=== PATIENT | male | born 1990 | race Two or more races ===

== ENCOUNTER 2021-01-09 09:03 | Emergency (ER) | payer MEDICAID ==
[~2021-01-09] VITALS: Ht 185.4 cm; Wt 106.1 kg
--- NOTE | 2021-01-09 09:55 | NUR ---
called in waiting room, no answer.
--- NOTE | 2021-01-09 10:38 | NUR ---
" I FEEL LIKE HURTING MYSELF & SOMEONE, I WANT TO RUN INTO TRAFFIC ". " I WANT TO GO TO [facility] TO BE ADMITTED " PT AAOX4, VSS. RR EVEN & UNLABORED. DENIES CP, SOB, DIZZINESS, N/V AT THIS TIME. PT CALM & COOPERATIVE, NAD NOTED AT THIS TIME. AWAITING EVAL BY BUBBA. SITTER AT BS & WILL CONT TO MONITOR.
[2021-01-09 11:28] LABS: BASOPHILS # (AUTO) 0.1 K/uL (0.0-0.2); BASOPHILS % (AUTO) 0.8 % (0.0-2.0); EOSINOPHILS % (AUTO) 3.9 % (0.0-6.0); HEMATOCRIT 42 % (39-51); HEMOGLOBIN 14.6 g/dL (13.5-17.5); LYMPHOCYTES # (AUTO) 1.8 K/uL (0.8-4.8); LYMPHOCYTES % (AUTO) 23.8 % (20.0-44.0); MEAN CORPUSCULAR HGB CONC 35 g/dl (31.0-36.0); MEAN CORPUSCULAR VOLUME 96 fL (80-96); MONOCYTES # (AUTO) 0.6 K/uL (0.1-1.30); MONOCYTES % (AUTO) 7.8 % (2.0-12.0); NEUTROPHILS # (AUTO) 4.7 K/uL (1.8-8.9); NEUTROPHILS % (AUTO) 63.7 % (43.0-81.0); PLATELET COUNT (AUTO) 283 K/uL (150-450); RED BLOOD CELL COUNT(AUTO) 4.41 MIL/uL (4.5-6.0); WHITE BLOOD COUNT (AUTO) 7.4 K/uL (4.3-11.0)
[2021-01-09 11:36] LABS: CALCIUM, SERUM 8.5 mg/dL (8.5-10.1); CARBON DIOXIDE 29 mmol/L (21-32); CHLORIDE 104 mmol/L (98-107); CREATININE 0.8 mg/dL (0.6-1.3); GLUCOSE 128 mg/dL (74-106); POTASSIUM 4.2 mmol/L (3.5-5.1); SODIUM SERUM 142 mmol/L (136-145); UREA NITROGEN, BLOOD 14 mg/dL (7-18)
[2021-01-09 11:37] LABS: BILIRUBIN,URINE Negative (NEGATIVE); COLOR,URINE YELLOW (YELLOW); LEUKOCYTE ESTERASE ,URINE Negative (NEGATIVE); NITRITE, URINE Negative (NEGATIVE); PH,URINE 6.5 (5.0-8.0); PROTEIN,URINE Negative (NEGATIVE); UGLUCOSE Negative (NEGATIVE); UROBILINOGEN,URINE 0.2 EU/dL (0.2)
[2021-01-09 11:54] LABS: ALANINE AMINOTRANSFERASE 26 U/L (12-78); ALBUMIN 3.5 g/dL (3.4-5.0); ALCOHOL, BLOOD < 3 mg/dL (0-0); ALKALINE PHOSPHATASE 62 U/L (46-116); ASPARTATE AMINOTRANSFERASE 16 U/L (15-37); BILIRUBIN,TOTAL 0.1 mg/dL (0.2-1.0); TOTAL PROTEIN, SERUM 6.7 g/dL (6.4-8.2)
[2021-01-09 11:57] LABS: ACETAMINOPHEN 0 ug/ml (10-30)
--- NOTE | 2021-01-09 12:23 | NUR ---
COVID SWAB DONE AND SENT TO LAB
--- NOTE | 2021-01-09 14:04 | NUR ---
CALLED LAB TO FOLLOW UP ON COVID SWAB STILL "WORKING ON IT".
--- NOTE | 2021-01-09 15:08 | NUR ---
CLINICALS FAXED TO [facility].
--- NOTE | 2021-01-09 18:04 | NUR ---
THE PATIENT IS ACCPTED TO [facility] UNDER DR HAMPTON
[2021-01-09 18:10] VITALS: BP 131/78
--- NOTE | 2021-01-09 18:10 | NUR ---
REPORT GIVEN TO NURSE DANIELLE
--- NOTE | 2021-01-09 18:12 | NUR ---
CALLED [facility] FOR TRANSPORT TO [facility]. ETA 45 MINUTES.
--- NOTE | 2021-01-09 18:34 | NUR ---
PATIENT A/OX4, BREATHING EVEN AND UNLABORED, AMBULATORY WITH STEADY GAIT. NO DISTRESS NOTED. PATIENT TRANSFERRED TO [facility] IN STABLE CONDITION.
== END 2021-01-09 18:35 ==
LOC: ER 09:06
DX: R45.851 Suicidal ideations (principal); F31.9 Bipolar disorder, unspecified; Z59.0 Homelessness; Z20.822 Contact with and (suspected) exposure to COVID-19
CPT/HCPCS: 36415; 80048; 80076; 80143; 80307; 80320; 81003; 85025; 87426; 99285; C9803; G0480

== ENCOUNTER 2021-01-22 13:06 | Emergency (ER) | payer MEDICAID ==
[~2021-01-22] VITALS: Ht 185.4 cm; Wt 113.4 kg
[2021-01-22 13:10] VITALS: BP 131/75
--- NOTE | 2021-01-22 13:10 | NUR ---
PT SELF PRESENTS TO ED C/O SUICIDAL IDEATION W. PLAN TO RUN INTO TRAFFIC. PT STATES WAS RECENTLY DISCHARGED [facility] TODAY AND WAS FEELING FINE STARTED HAVING AUDITORY HALLUCINATIONS S/P DRINKING BEER. REQUESTING VOLUNTARY PSYCH ADMISSION TO A PSYCHIATRIC FACILITY. STABLE VITALS. AWAITING MD LOPEZ.
--- NOTE | 2021-01-22 13:13 | NUR ---
DR MOORE AT BEDSIDE FOR EVAL.
--- NOTE | 2021-01-22 13:35 | NUR ---
MACHINE MAINTENANCE TECHNICIAN AT BEDSIDE FOR BLOOD DRAW.
[2021-01-22 13:42] LABS: BASOPHILS % (AUTO) 0.7 % (0.0-2.0); EOSINOPHILS % (AUTO) 3.9 % (0.0-6.0); HEMATOCRIT 44 % (39-51); HEMOGLOBIN 14.9 g/dL (13.5-17.5); LYMPHOCYTES # (AUTO) 1.6 K/uL (0.8-4.8); LYMPHOCYTES % (AUTO) 23.6 % (20.0-44.0); MEAN CORPUSCULAR HGB CONC 34 g/dl (31.0-36.0); MEAN CORPUSCULAR VOLUME 95 fL (80-96); MONOCYTES # (AUTO) 0.6 K/uL (0.1-1.30); MONOCYTES % (AUTO) 8.9 % (2.0-12.0); NEUTROPHILS # (AUTO) 4.4 K/uL (1.8-8.9); NEUTROPHILS % (AUTO) 62.9 % (43.0-81.0); PLATELET COUNT (AUTO) 299 K/uL (150-450); RED BLOOD CELL COUNT(AUTO) 4.58 MIL/uL (4.5-6.0)
[2021-01-22 13:55] LABS: CALCIUM, SERUM 8.7 mg/dL (8.5-10.1); CARBON DIOXIDE 24 mmol/L (21-32); CHLORIDE 105 mmol/L (98-107); GLUCOSE 112 mg/dL (74-106); POTASSIUM 4.6 mmol/L (3.5-5.1); SODIUM SERUM 142 mmol/L (136-145); UREA NITROGEN, BLOOD 17 mg/dL (7-18)
--- NOTE | 2021-01-22 13:58 | NUR ---
URINE SENT TO LAB
[2021-01-22 13:59] LABS: ACETAMINOPHEN 0 ug/ml (10-30); ALANINE AMINOTRANSFERASE 48 U/L (12-78); ALBUMIN 3.8 g/dL (3.4-5.0); ALCOHOL, BLOOD < 3 mg/dL (0-0); ALKALINE PHOSPHATASE 49 U/L (46-116); ASPARTATE AMINOTRANSFERASE 31 U/L (15-37); BILIRUBIN,TOTAL 0.2 mg/dL (0.2-1.0); TOTAL PROTEIN, SERUM 7.1 g/dL (6.4-8.2)
[2021-01-22 14:15] LABS: BILIRUBIN,URINE Negative (NEGATIVE); COLOR,URINE LIGHT YELLOW (YELLOW); LEUKOCYTE ESTERASE ,URINE Negative (NEGATIVE); NITRITE, URINE Negative (NEGATIVE); PROTEIN,URINE Negative (NEGATIVE); UGLUCOSE Negative (NEGATIVE); UROBILINOGEN,URINE 0.2 EU/dL (0.2)
--- NOTE | 2021-01-22 15:50 | NUR ---
Plan: RANI referred pt. to [facility] [[address] [place] [id number] FAX:[phone]] for inpatient psychiatric treatment.
--- NOTE | 2021-01-22 16:54 | NUR ---
SS Consult: SS Consult requested for SI & Hx. of drug abuse. The pt. is a 30- year old male who presents to ED with C/O suicidal ideations with plan to "run into incoming traffic". The pt. appears well-groomed is A&O X3 and is a poor historian. Pt. is slightly confused possible DD or some cognitive deficit. Pt. unbale to provide the year or his address. Pt. makes piercing eye contact with flat affect and loud speech. Pt.'s mood is depressed. Pt. denies visual hallucinations and states he is hearing voices telling him to "kill myself". Pt also stated,"I don't feel right in this world sometimes". Pt. denies HI. RANI offered pt. voluntary admission to a psych facility for treatment and pt. is agreeable. RANI explored pt.'s mental health Hx. Pt. states he has been diagnosed with Schizoaffective Disorder in the past. Pt. stated he was discharged from [facility] today and was on a hold. Per pt. he felt fin until he took his medication and a beer and the AH began. RANI explored pt.'s living situation. Pt. admits he is living with his aunt. Pt. couldn't confirm address. RANI explored pt.'s drug & ETOH use. Patient stated he has Hx. of Meth use. Pt. states he is ambulatory. RANI explored pt.'s support system. Pt. states his mother, Rozina [phone] is his support system. Pt. states he receives Food stamps. Plan: RANI referred pt. to [facility] for inpatient psychiatric treatment. Pt. signed homeless waiver and it was placed in the chart. RANI provided pt. with homeless, and mental health resources and he accepted them : Year-round shelters: [facility] [address] [place] [address] ; [place] [facility] [place] [address] [place] [address]; [place] [facility] N[address] [facility]. [facility] [id number] Winter Shelters: [facility] Provider: Chad [place] Address: [address], [address] # of Beds: 47 Population Served: [facility] 6 | [facility] Julia Tovar [place] Provider: [facility] Last Address: [address], [address] # of Beds: 66 Population Served: [facility] Harish [place] Provider: First to Serve Address: [address] [facility] [place] [address] # of Beds: 56 Population Served: [facility] [place] Provider: [facility] Address: [address] [facility], [address] # of Beds: 49 Population Served: [facility] 8 | [place] Provider: First to Serve Address: [address] [facility], [address] # of Beds: 37 Population Served: [facility] Hygiene: [facility]: [address] [facility] ; [place] [facility] [address] [facility] ; [facility] [address] [facility] . Food Resources: [place] Food Pantry at [facility]- [address] [facility]; Meet Each Need with Dignity ([facility]) [address] [facility]; [facility] Food Pantry [address] [facility]; [facility] 6109 [facility]. Mental Health resources provided: [facility] [address] [place] [address] ; [facility] [address] [facility] [address], [place] [address] ; [facility] [address] [place] [address] ; [facility] [address] [place], [place] [phone] Healthcare Clinics: [facility] [address] [facility], [address] [place]. [place] ; [facility] [address] [facility] [address] [place] [address]; [facility] [address] [facility] [phone] Counseling--Outpatient [facility] [address] [facility], [place] [address] (Specializes in in-depth psychotherapy for emotional distress: anxiety, depression, interpersonal conflicts, life transitions, childhood abuse) [facility] [address] [place] [address] (Assist with solving problem marital difficulties, separation & divorce, aging parents, & grief, chronic & terminal illness) [facility] [address] [place] [address] (Deal with loss & grief, anxiety, marital difficulties) Homebound/Mental Health Services [address] [facility] [address] [place] [address] (Provide in-home mental services to people who are incapable of leaving their homes) [facility] for Needs of the Elderly Senior Service/Resource Center [address] [facility] [place] [address] [facility] [address] [place] [address] PSYCHIATRIC OUTPATIENT SERVICES [facility] Partial Hospitalization and Intensive Outpatient Program (Managed Care and [place] Only)[address] [facility]. [facility] [phone] [facility] Partial Hospitalization and Outpatient [id number] [facility] [address] [place], [place] [phone] [facility] [id number] [facility] [address] [place], [place] [phone] [facility] Partial Hospitalization and Outpatient [id number] [place], [phone] Substance Abuse resources provided included: [facility] Substance Abuse Self-Helpline ([facility]) ; [facility]RI -[facility]LP [address] [facility]. [place] [id number] ; [facility] [address] [facility] [address] ; [facility] [address] [place]. [place] [phone] ; [facility] [address] [facility] [address] ; [facility] 7[address] Jaden Henriquez [facility] [address] ; Jann[facility] 902 [facility] [phone] ; [facility] Substance Abuse Helpline([facility])-[facility] ; [facility] ; [facility]; [facility] [place]; [facility] Jaden Henriquez; [facility] [place]; [facility] [place]; [facility]; [facility] [place] [place]; Alcoholics Anonymous -SFV; Bg-Ggld-Twkwecv ; Marijuana Anonymous -SFV; Narcotics Anonymous www.na.org;
--- NOTE | 2021-01-22 19:27 | NUR ---
[facility] WILL BE TRANSPORTING THE PT IN 30 MINS TO [facility].
--- NOTE | 2021-01-22 19:34 | NUR ---
PT [facility]PTED AT [facility] OF [facility]. PT GOING TO UNIT 2. CALL [phone] FOR REPORT
--- NOTE | 2021-01-22 20:07 | NUR ---
REPORT GIVEN TO EMS AT BEDSIDE
--- NOTE | 2021-01-22 20:12 | NUR ---
REPROT GIVEN TO [facility]
--- NOTE | 2021-01-22 20:20 | NUR ---
PT LEFT ON GURNEY WITH 2 EMT AND BEDSIDE IN STABLE CONDITION. NAD NOTED.
== END 2021-01-22 20:20 ==
LOC: ER 13:10
DX: F29 Unspecified psychosis not due to a substance or known physiological condition (principal); R45.851 Suicidal ideations; Z59.0 Homelessness; Z20.822 Contact with and (suspected) exposure to COVID-19; F31.9 Bipolar disorder, unspecified; F15.10 Other stimulant abuse, uncomplicated; F10.10 Alcohol abuse, uncomplicated; Y90.0 Blood alcohol level of less than 20 mg/100 ml
CPT/HCPCS: 36415; 80048; 80076; 80143; 80307; 80320; 81003; 85025; 87426; 99285; C9803; G0480